=== PATIENT | female | born 1965 | race Caucasian/White ===

== ENCOUNTER 2016-12-09 12:32 | Day surgery (SDC) | payer MEDICARE ==
[~2016-12-09] VITALS: Ht 162.6 cm; Wt 59.0 kg
--- NOTE | ~2016-12-09 | OP ---
Record Of Operation [facility] [address] [place]. [address] NAME: JOSE SAUCEDO : 61 STATUS : [facility]#: [id number] AGE: 51 ADM/REG DATE : 12/09/16 MR#: [id number] REPORT SERV DATE: 12/11/16 DICTATED BY: RAS CHAVEZ DATE: 12/11/16 REPORT STATUS : Draft TRANSCRIBED BY: MODL DATE: 12/11/16 DATE OF PROCEDURE: 12/09/2016 PREOPERATIVE DIAGNOSIS: Right ureteral stones. POSTOPERATIVE DIAGNOSIS: Right ureteral stones. PROCEDURE PERFORMED: 1. Right ureteroscopy with stone extraction. 2. Cystoscopy with right retrograde pyelogram and right ureteral stent placement. ANESTHESIA: General. COMPLICATIONS: None. SPECIMEN: Right ureteral stones for chemical analysis. INDICATION: Mrs. Saucedo underwent ureteral stenting a week ago. She had presented with urosepsis to [facility]. There was an obstructing small right distal ureteral stones were obstructing. She had been trying to pass these for several weeks. She has been on culture-specific antibiotics. She is feeling better. She returns for ureteroscopic treatment of the stones. There were 2 stones in the right ureter and 1 stone in the right kidney. Intraoperatively today, I found 3 stones in the right ureter and no stones in the right kidney. All 3 stones were removed. TECHNIQUE: Informed consent was obtained. She received Rocephin preop. General endotracheal anesthesia was administered. The genitals and perineum were prepped and draped in the lithotomy position in a sterile fashion. Rigid cystoscopy was performed. There was no tumor, lesion, or stone in the bladder. Right ureteral stent was grasped and extracted out to the meatus. I passed a wire through the stent up to the right kidney. Retrograde pyelogram showed no hydronephrosis. Stones were not clearly visualized. I replaced the wire and passed a rigid ureteroscope over the wire. The right ureter was cannulated. The ureteroscope was advanced under direct vision. I identified stones about 2 cm above the right UVJ. I used the NGage basket to basket extract the 1st stone, thus ureteroscope was readvanced. Two additional stones were seen. These were both basket extracted. The largest was 4 mm. Up to the mid ureter, no other stones remained. I repeated a retrograde pyelogram. There was no extravasation. I passed a flexible ureteroscope over a wire up to the right kidney. There were Kaushik's plaques in multiple calices, but no free-floating stone was seen. I removed the ureteroscope leaving the wire in place. Under fluoroscopic guidance, I placed a 6-Welsh right ureter stent. The dangling string was externalized and secured to the right inner thigh with a Tegaderm. She will remove this at home on postop day #3, and she needs 24-hour urine test to guide further stone prevention therapy. [facility] Record Of [facility] [address]. [address] NAME: JOSE SAUCEDO : 61 STATUS : [facility]#: [id number] AGE: 51 ADM/REG DATE : 12/09/16 MR#: [id number] REPORT SERV DATE: 12/11/16 DICTATED BY: RAS CHAVEZ DATE: 12/11/16 REPORT STATUS : Draft TRANSCRIBED BY: EUSEBIO DATE: 12/11/16 Ras Chavez M.D. / [id number] CC: Arnoldo Richards M.D.
[~2016-12-09 12:32] MED LIST: ADVIL PO; AZO STANDARD PO; CYMBALTA60 PO; DITRO5 PO; ESTRACE1 MG PO; KLONO1 PO; KLONO2 PO; LORTAB 5 PO; PCET PO; PR25 PO; PYR100B PO; UROCIT-K 5540 MG OR
== END 2016-12-09 17:18 | disposition home or self-care (01) ==
LOC: SDC 12:32
PROVIDERS: Urology
PROC: 0T768DZ Dilation of Right Ureter with Intraluminal Device, Via Natural or Artificial Opening Endoscopic (ICD-10-PCS; 2016-12-09)
PROC: 0TC68ZZ Extirpation of Matter from Right Ureter, Via Natural or Artificial Opening Endoscopic (ICD-10-PCS; principal; 2016-12-09 13:30)
DX: N20.1 Calculus of ureter (principal); F17.210 Nicotine dependence, cigarettes, uncomplicated; G43.909 Migraine, unspecified, not intractable, without status migrainosus; M79.7 Fibromyalgia; F41.0 Panic disorder [episodic paroxysmal anxiety]; M19.90 Unspecified osteoarthritis, unspecified site; Z79.899 Other long term (current) drug therapy; Z90.49 Acquired absence of other specified parts of digestive tract; Z98.51 Tubal ligation status; Z90.710 Acquired absence of both cervix and uterus; Z98.890 Other specified postprocedural states; Z90.722 Acquired absence of ovaries, bilateral
CPT/HCPCS: 74420; 88300; A9270-GY; C1769; C2617; J1170; J2250; J2405; J2550; J3010; Q9967